=== PATIENT | male | born 1990 | race Caucasian/White ===

== ENCOUNTER 2016-09-17 13:07 | Emergency (ER) | payer OTHER ==
[~2016-09-17] VITALS: Ht 172.7 cm; Wt 68.3 kg
[2016-09-17 13:23] VITALS: TEMP 36.8; Ht 172.7 cm; Wt 68.3 kg
[2016-09-17] MEDS ORDERED: CETI10TA10 PO (13:54)
[2016-09-17] MEDS ORDERED: BENZ100C84 PO (13:54)
[2016-09-17] MEDS ORDERED: FLUT0.15 NAE (13:54)
[2016-09-17] MEDS ORDERED: PSEU30TA20 PO (13:54)
--- NOTE | 2016-09-17 14:22 | DIAGNOSTIC IMAGING REPORT ---
CHEST 2 VIEWS ROUTINE CLINICAL HISTORY: Persistent cough. COMPARISON STUDY: No previous studies for comparison. FINDINGS: There is no pneumothorax or pleural effusion. Lungs are clear. Cardiac size is normal. Mediastinal contours are normal. There is no evidence of pulmonary edema. IMPRESSION: No acute cardiopulmonary findings. Electronically signed by: Prasanna Hutchins M.D. 09/17/2016 2:21 PM Dictated Date/Time: 09/17/2016 2:20 PM
--- NOTE | 2016-09-17 14:32 | EMERGENCY ROOM VISIT NOTE ---
ED Visit Note First contact with patient: 13:43 CHIEF COMPLAINT: Cough HISTORY OF PRESENT ILLNESS: This 26-year-old male presents the ER with chief complaint of a cough for 3 weeks. He states now it hurts to cough. He was initially seen at [facility] 10 days ago for his symptoms. He was told that it was allergies and was placed on allergy medication. The patient states that his symptoms have not improved but have gotten worse. The patient does admit to a runny nose and slight postnasal drainage but denies any fever, ear pain, sore throat. REVIEW OF SYSTEMS: 6 system review was performed and was negative unless stated otherwise in history of present illness. PMH: The patient is healthy; asthma SOCIAL HISTORY: Patient lives alone. The patient denies any tobacco use but does admit to occasional alcohol use. PHYSICAL EXAM: Vital Signs were reviewed: Reviewed Nurse's notes and agree. Oxygen saturation is 98 % on room air which is normal . GENERAL: 26 male appears in no acute distress. MENTAL STATUS: Alert, oriented, coherent. EARS: Canals clear. TMs good light reflex, no erythema or fluid level noted. NOSE: Nasal mucosa with moderate erythema engorgement. PHARYNX: No erythema, no edema noted. No exudate noted. Airway is adequate. NECK: Supple, non-tender. No lymphadenopathy noted. LUNGS: Expiratory wheeze noted bilaterally along reeves. No rales or rhonchi noted CARDIAC: Regular rate and rhythm without murmur. SKIN: No rashes noted. EMERGENCY DEPARTMENT COURSE: The patient was evaluated. Chest x-ray was ordered and interpreted by the radiologist and myself. DIAGNOSTICS:CHEST 2 VIEWS ROUTINE CLINICAL HISTORY: Persistent cough. COMPARISON STUDY: No previous studies for comparison. FINDINGS: There is no pneumothorax or pleural effusion. Lungs are clear. Cardiac size is normal. Mediastinal contours are normal. There is no evidence of pulmonary jodie IMPRESSION: No acute cardiopulmonary findings. Electronically signed by: Prasanna Hutchins M.D. 09/17/2016 2:21 PM The patient was informed of the findings. The patient was discharged to home in stable condition. DIAGNOSIS: Acute bronchitis/pleuritic chest pain DISCHARGE INSTRUCTIONS AND TREATMENT: Ibuprofen 600 mg every 6 hours with food for pain. Take Medrol dosepak as prescribed. Use your albuterol inhaler 2 puffs every 4 hours for 5 days then every 4 hours as needed. Take Z-Crow as prescribed. Recommend follow-up with [facility] in 1 week for reevaluation. If symptoms worsen in the interim, return to ER. Problem List Medical Problems: (1) Asthma Status: Chronic Current/Historical Medications Scheduled Cetirizine Hcl (Zyrtec), 10 MG PO DAILY Fluticasone Propionate (Nasal) (Flonase Allergy Relief), 2 SPRAYS JEMAL DAILY Scheduled PRN Benzonatate (Tessalon Perles), 100 MG PO TID PRN for Cough Pseudoephedrine (Sudafed), 60 MG PO q4-6h PRN for allergy symptoms Allergies Coded Allergies: Kiwi (Verified Allergy, Unknown, RASH, 09/17/16) NO KNOWN DRUG ALLERGIES (Verified Allergy, Unknown, none, 09/17/16) Vital Signs Date Time Temp Pulse Resp B/P (MAP) Pulse Ox O2 Delivery O2 Flow Rate FiO2 09/17/16 13:23 97 Room Air 09/17/16 13:23 36.8 91 18 117/65 97 Room Air Departure Information Referrals No Doctor, Assigned (PCP) Patient Instructions [facility]
[2016-09-17] MEDS ORDERED: METH4PAK PO (14:34)
[2016-09-17] MEDS ORDERED: AZITTAB PO (14:34)
[2016-09-17] MEDS ORDERED: VNTHFA/IN INH (14:34)
[2016-09-17 14:41] VITALS: BP 110/62; PULSE 88; O2SAT 99
== END 2016-09-17 14:44 | disposition home or self-care (01) ==
LOC: C.EDB 13:11 → C.EDD 14:44
DX: J20.9 Acute bronchitis, unspecified (principal); R07.81 Pleurodynia; J45.909 Unspecified asthma, uncomplicated